=== PATIENT | male | born 1965 | race African-American/Black ===

== ENCOUNTER 2017-02-25 20:02 | Emergency (ER) | payer MEDICAID, MEDICARE ==
[~2017-02-25] VITALS: Ht 188 cm; Wt 117.0 kg
[2017-02-26] MEDS ORDERED: MORPHINE SULFATE 2 MG/ML CPJ (NOT FOR IM USE) IV ONE (03:45)
[2017-02-26] MEDS ORDERED: ONDANSETRON HCL 4MG/2ML VIAL ONE (03:46)
[2017-02-26 09:36] VITALS: BP 134/78
== END 2017-02-26 10:52 | disposition home or self-care (01) ==
LOC: ER 20:02
DX: S82.201A Unspecified fracture of shaft of right tibia, initial encounter for closed fracture (principal); S12.600A Unspecified displaced fracture of seventh cervical vertebra, initial encounter for closed fracture; M71.21 Synovial cyst of popliteal space [Baker], right knee; G40.909 Epilepsy, unspecified, not intractable, without status epilepticus; M25.562 Pain in left knee; M79.671 Pain in right foot; Z91.14 Patient's other noncompliance with medication regimen; F17.200 Nicotine dependence, unspecified, uncomplicated; V43.52XA Car driver injured in collision with other type car in traffic accident, initial encounter; Y93.89 Activity, other specified; Y92.89 Other specified places as the place of occurrence of the external cause; Y99.8 Other external cause status
CPT/HCPCS: 70450; 70490; 73562; 73610; 73620; 93970; 96374; 96375; 99284; J2270; J2405; J7030; L1830

== ENCOUNTER 2019-09-17 09:09 | Emergency (ER) | payer MEDICAID, MEDICARE ==
[~2019-09-17] VITALS: Ht 188 cm; Wt 100.0 kg
[2019-09-17 09:14] VITALS: BP 125/71
== END 2019-09-17 10:04 | disposition left against medical advice (07) ==
LOC: ER 09:22
DX: G40.909 Epilepsy, unspecified, not intractable, without status epilepticus (principal)
CPT/HCPCS: 99283

== ENCOUNTER 2020-08-24 21:50 | Emergency (ER) | payer MEDICAID, MEDICARE ==
[~2020-08-24] VITALS: Ht 185.4 cm; Wt 84.0 kg
[2020-08-24 21:51] VITALS: BP 137/80
[2020-08-24] MEDS ORDERED: SODIUM CHLORIDE 0.9% 1,000 ML IV ONE (22:15)
== END 2020-08-24 22:24 | disposition left against medical advice (07) ==
LOC: ER 21:50
DX: R56.9 Unspecified convulsions (principal); Z53.21 Procedure and treatment not carried out due to patient leaving prior to being seen by health care provider
CPT/HCPCS: 99281; J7030